=== PATIENT | male | born 1980 | race Caucasian/White ===

== ENCOUNTER 2017-01-09 17:47 | Emergency (ER) | payer OTHER ==
[2017-01-09 17:52] VITALS: BMI 24.6
[2017-01-09] MEDS ORDERED: IBUPROFEN 400 MG TABLET (FP) PO ONE ×2 (19:54→20:06)
[2017-01-09] MEDS ORDERED: METHOCARBAMOL 500 MG TABLET PO ONE (19:54)
--- NOTE | 2017-01-09 19:54 | PDOC ---
History of Present Illness - General History Source: Patient Exam Limitations: No Limitations - History of Present Illness Initial Comments: 01/09/17 20:15 The patient is a 36 year old male with no significant past medical history who presents to the ED for 3 days of left flank pain. Patient describes pain as nonradiating and sharp that is exacerbated upon deep inspiration and some pain when he extends his left arm. No alleviating factors. Denies dysuria, hematuria , urgency, and frequency. States his pain is unresolved with motrin or muscle relaxant. Denies any trauma to the area. The patient denies fever, chills, cough, SOB, chest pain, and palpitations. The patient denies abdominal pain, nausea, vomiting, and diarrhea. Allergies: NKDA Social History: No alcohol, tobacco, or drug use reported. Past Surgical History: None reported PCP: None reported <Becka Galaviz - Last Filed: 01/09/17 20:15> - General History Source: Patient <Chung Stroud - Last Filed: 01/09/17 21:49> - General Chief Complaint: Pain Stated Complaint: BACK PAIN Time Seen by Provider: 01/09/17 19:50 Past History <Becka Galaviz - Last Filed: 01/09/17 20:15> - Past Medical History Other medical history: none - Psycho/Social/Smoking Cessation Hx Anxiety: No Suicidal Ideation: No Smoking History: Never smoked Have you smoked in the past 12 months: No Information on smoking cessation initiated: No Hx Alcohol Use: No Drug/Substance Use Hx: No Substance Use Type: None <Chung Stroud - Last Filed: 01/09/17 21:49> - Past Medical History Allergies/Adverse Reactions: Allergies Allergy/AdvReac Type Severity Reaction Status Date / Time No Known Allergies Allergy Verified 01/09/17 19:51 Home Medications: Ambulatory Orders Acetaminophen [Tylenol] 325 mg PO PRN PRN 01/09/17 Azithromycin [Zithromax -] 250 mg PO UTDICT #6 tab 01/09/17 Review of Systems - Review of Systems Able to Perform ROS?: Yes Comments:: 01/09/17 20:15 CONSTITUTIONAL: Absent: fever, no chills, no fatigue EYES: Absent: visual changes ENT: Absent: ear pain, no sore throat CARDIOVASCULAR: Absent: chest pain, no palpitations RESPIRATORY: Absent: cough, no SOB GI: Absent: abdominal pain, no nausea, no vomiting, no constipation, no diarrhea GENITOURINARY: +L flank pain Absent: dysuria, no frequency, no hematuria MUSCULOSKELETAL: Absent: back pain, no arthralgia, no myalgia SKIN: Absent: rash NEURO: Absent: headache <Becka Galaviz - Last Filed: 01/09/17 20:15> *Physical Exam - Vital Signs Last Vital Signs Temp Pulse Resp BP Pulse Ox 98.1 F 72 18 145/90 100 01/09/17 17:49 01/09/17 17:49 01/09/17 17:49 01/09/17 17:49 01/09/17 19:40 - Physical Exam Comments: 01/09/17 20:15 GENERAL: Well-appearing, well-nourished. No apparent distress. HEENT: Normocephalic, atraumatic. PERRL, EOM intact. CARDIOVASCULAR: Normal S1, S2. Regular rate and rhythm. PULMONARY: Clear to auscultation bilaterally. ABDOMEN: Soft, non-distended, non-tender. MUSCULOSKELETAL: Mild left CVA tenderness. Mild pain that is elicited of the ROM of left arm and shoulder and twisting of the thoracic region. EXTREMITIES: Normal ROM in all four extremities. No gross deformities. SKIN: Warm, dry. No rash NEUROLOGICAL: No focal neurological deficits. <Becka Galaviz - Last Filed: 01/09/17 20:15> - Vital Signs Last Vital Signs Temp Pulse Resp BP Pulse Ox 98.1 F 72 18 145/90 100 01/09/17 17:49 01/09/17 17:49 01/09/17 17:49 01/09/17 17:49 01/09/17 17:49 <Chung Stroud - Last Filed: 01/09/17 21:49> ED Treatment Course - Medications Given in the ED: ED Medications Discontinued Medications Generic Name Dose Route Start Last Admin Trade Name Claudio PRN Reason Stop Dose Admin Ibuprofen 800 mg 01/09/17 19:54 01/09/17 20:14 Motrin - PO 01/09/17 19:55 800 mg ONCE ONE Administration Methocarbamol 1,000 mg 01/09/17 19:54 01/09/17 20:14 Robaxin - PO 01/09/17 19:55 1,000 mg ONCE ONE Administration <Becka Galaviz - Last Filed: 01/09/17 20:15> Medical Decision Making - Medical Decision Making 01/09/17 21:47 Dr. Stroud: The scribe's documentation has been prepared under my direction and personally reviewed by me in its entirery. I confirm that the note above accurately reflects all work, treatment, procedures, and medical decision making performed by me. patient found to have a small amount of pleural fluid in the left costophrenic angle. Patient will be treated with antibiotics, for possible resolution. However patient advised to follow-up with his primary care physician for further evaluation <Chung Stroud - Last Filed: 01/09/17 21:49> *DC/Admit/Observation/Transfer - Attestations Scribe Attestion: 01/09/17 20:16 Documentation prepared by Becka Galaviz, acting as medical device sales consultant for Chung Stroud MD/DO. <Becka Galaviz - Last Filed: 01/09/17 20:15> - Discharge Dispostion Admit: No <Chung Stroud - Last Filed: 01/09/17 21:49> Diagnosis at time of Disposition: Pleural effusion Pneumonia Qualifiers: Pneumonia type: due to unspecified organism Laterality: left Lung location: lower lobe of lung Qualified Code(s): J18.1 - Lobar pneumonia, unspecified organism - Discharge Dispostion Disposition: HOME Condition at time of disposition: Stable - Referrals Referrals: STAFF,NOT ON [Primary Care Provider] - - Patient Instructions Printed Discharge Instructions: Pleural Effusion, DI for Pneumonia -- Adult Additional Instructions: Please follow up with your doctor to further evaluate the fluid that is seen on ct scan. Take antibiotic prescribe to see if fluid resolves. Return if symptoms don't improve
[2017-01-09] MEDS ORDERED: METHOCARBAMOL 500 MG TABLET ONE (20:06)
[2017-01-09] MEDS ORDERED: AZITHROMYCIN 250 MG TABLET (FP) PO STA (21:44)
[2017-01-09] MEDS ORDERED: AZITHROMYCIN 250 MG TABLET (FP) ONE (22:54)
[2017-01-09 22:57] VITALS: BP 140/88; PULSE 74; TEMP 98
== END 2017-01-09 23:00 | disposition home or self-care (01) ==
LOC: JER 17:47
DX: J90 Pleural effusion, not elsewhere classified (principal); J18.1 Lobar pneumonia, unspecified organism
CPT/HCPCS: 74176; 99282-25